=== PATIENT | female | born 1980 | race Caucasian/White ===

== ENCOUNTER 2017-10-11 18:02 | Inpatient (IN) | payer OTHER ==
[~2017-10-11] VITALS: Ht 154.9 cm; Wt 63.5 kg
[~2017-10-11 18:02] MED LIST: ACETAMINOPHEN-1 EAC1 PO; ALBUTEROL2.5 MG/31 INH; BACTRIM DS TAB1 EACH PO; BUPROPION; CIPROFLOXACIN500 M1 PO; DOXYCYCLINE 10100 M1 PO; IBUPROFEN 800800 M1 PO; IBUPROFEN 800800 MG PO; LORTAB 5 MG/5001 TA1 PO; MEDROLDOSEPACK PO; NOHOMEMEDICATIONS; NORCO 5-325 TA1 EACH PO; PENICILLIN V P500 MG PO; PHENERGAN 25 MG25 M1 PO; ROBITUSSIN-COU237 ML PO; TESSALON PERLE100 MG PO; ZPAK PO
[2017-10-11 18:11] VITALS: BP 132/85
[2017-10-11 18:36] LABS: HEMATOCRIT 42.2 % (37.0-47.0); MCH 30.6 pg (26.0-34.0); MCHC 33.3 g/dL (28.0-37.0); MPV 8.4 fl. (7.2-11.1); NUCLEATED RBCS 0 /100WBC; PLATELET COUNT* 382 thou/uL (150-400); RBC 4.59 mil/uL (4.20-5.00); RDW-CV 12.7 % (10.5-14.5); WBC 21.1 thou/uL (4.0-11.0)
[2017-10-11 18:46] LABS: CALCIUM 9.7 mg/dL (8.5-10.1); CREATININE 0.9 mg/dL (0.6-1.3)
[2017-10-11 18:51] LABS: ALBUMIN 3.6 g/dL (3.4-5.0); TOTAL BILIRUBIN 0.5 mg/dL (<0.1-1.0); TOTAL PROTEIN 8.1 g/dL (6.4-8.2)
[2017-10-11 18:52] LABS: ABSOLUTE BASOPHILS 0.2 thou/uL (0.0-0.2); ABSOLUTE LYMPHOCYTES 1.3 thou/uL (0.8-5.3); ABSOLUTE MONOCYTES 0.6 thou/uL (0.0-1.2); ATYPICAL LYMPHS 1 %; PLATELET ESTIMATE ADEQUATE
[2017-10-11 19:20] LABS: URINE BILIRUBIN NEGATIVE (Negative); URINE BLOOD NEGATIVE (Negative); URINE CLARITY CLEAR; URINE COLOR YELLOW; URINE GLUCOSE-RANDOM NEGATIVE (Negative); URINE KETONES NEGATIVE (Negative); URINE LEUKOCYTES-REFLEX NEGATIVE (Negative); URINE NITRITE-REFLEX NEGATIVE (Negative); URINE PROTEIN NEGATIVE (Negative)
[2017-10-11 19:41] LABS: AMP/METHAMP POSITIVE (Negative); BARBITURATES Negative (Negative); BENZODIAZEPINES Negative (Negative); COCAINE Negative (Negative); METHADONE Negative (Negative); OPIATES POSITIVE (Negative); PCP Negative (Negative); THC Negative (Negative)
--- NOTE | 2017-10-11 20:25 | NUR ---
PATIENT BACK FROM CT.
--- NOTE | 2017-10-11 23:15 | NUR ---
PATIENT ARRIVED FROM ER VIA W/CHAIR TO ROOM 315. PT HYSTERICALLY CRYING, YELLING INTO PHONE TO SIGNIFICANT OTHER THAT HE NEEDS TO COME BACK TO HOSPITAL AND STAY WITH HER. PT ALSO C/O PAIN IN BACK OF NECK. PT HAS CELLULITIS ON BACK OF NECK. AREA RED, WARM AND SWOLLEN; PICTURE PLACED ON CHART. PT RATES PAIN 10/10, FENTANYL 100MCG IV GIVEN. PT ABLE TO SLEEP AFTER THIS. PT ORIENTED TO ROOM/POLICIES AND VERBALIZES UNDERSTANDING. PT SHARED THAT B/FRIEND WAS IN HOSPITAL FOR MRSA IN HIS LEG THREE WEEKS AGO. B/FRIEND IS IN ROOM AT THIS TIME. PT PLACED IN ISOLATION UNTIL FURTHER TESING. FREQUENTLY USED ITEMS AND CALL LIGHT WITHIN REACH. SIDERAILS UPX2. WILL CONTINUE TO MONITOR.
[2017-10-11 23:17] VITALS: BP 171/102
--- NOTE | 2017-10-12 05:54 | NUR ---
PATIENT SLEPT WELL AFTER ASSESSMENT COMPLETED. PT GIVEN PAIN MEDICATION AFTER ASSESSMENT THEN AGAIN X1. PT ABLE TO RETURN TO SLEEP AFTERWARDS. PT PLACED IN ISOLATION FOR POSSIBLE MRSA. PT NPO SINCE MIDNIGHT. FREQUENTLY USED ITEMS AND CALL LIGHT WITHIN REACH. SIDERAILS UPX2. WILL CONTINUE TO MONITOR.
[2017-10-12 08:45] VITALS: BP 115/64
[2017-10-12 09:06] VITALS: BP 115/64
--- NOTE | 2017-10-12 10:42 | NUR ---
CM SPOKE TO THE PATIENT TO DISCUSS HOME SITUATION, DISCHARGE PLANNING, AND TO INFORM OF THE ROLE OF CM. PATIENT A&O, INDEPENDENT AND ACTIVE. PATIENT USES 0 DME. PATIENT HAS NO HX OF HH. PATIENT DOES NOT CURRENTLY HAVE INSURANCE. CM PROVIDED PATIENT A COMMUNITY RESOURCE LIST OF SAFETY NET CLINICS, AND A PRESCRIPTION ASSISTANCE CARD. CM WILL REMAIN AVAILABLE TO ASSIST AND FOLLOW NEEDED.
--- NOTE | 2017-10-12 14:03 | EKG ---
[place] [address] ELECTROCARDIOGRAM REPORT Name: GERALD FLAHERTY Room: [address] [place] .R.#: [id number] Admission: 10/11/17 Attend Phys: Perry Valencia MD Discharge: Date of : 84 Report #: [id number] THIS REPORT FOR: //name// [facility] ED Test Date: 2017-10-11 Test Time: 19:15:53 Pat Name: GERALD FLAHERTY Department: Room: [facility] Gender: F Podiatric Surgeon: BD : 1980 Requested By: Anthony Hernandez Order Number: [id number] MD: Refugio Caruso Measurements Intervals [place] Rate: 104 P: 42 NH: 130 QRS: 50 QRSD: 81 T: 56 QT: 336 QTc: 442 Interpretive Statements Sinus tachycardia No previous ECG available for comparison Electronically Signed On 10-12-2017 14:02:46 CDT by Refugio Caruso [email or web address] <ELECTRONICALLY SIGNED> By: Refugio Caruso MD, [facility] 10/12/17 1402 [id number] Refugio Caruso MD, FACC /EPI
[2017-10-12 16:00] VITALS: BP 105/60
[2017-10-12 16:08] LABS: GLYCOHEMOGLOBIN (HGB A1C) 5.3 % (4.8-5.6)
--- NOTE | 2017-10-12 17:27 | NUR ---
PATIENT HAS BEEN ALERT TODAY, COMPLAINS OF PAIN AT ALL TIMES, HAVE TRIED TO LET PATIENT REST TODAY. TOLERATING DIET WELL, PATIENT IS VERY TEARFUL ABOUT EVERYTHING. VITAL SIGNS HAVE BEEN STABLE ON ROOM AIR. UP AD RENEE IN ROOM. BOYFRIEND HAS BEEN AT BEDSIDE TODAY. CALL LIGHT IS IN REACH, WILL CONTINUE TO MONITOR.
[2017-10-12 20:10] VITALS: BP 106/67
[2017-10-13 03:37] VITALS: BP 106/67
--- NOTE | 2017-10-13 04:19 | NUR ---
PT A&O X4 CALM COOPERITVE. PT REPORTS PAIN, PARTIAL RELIEF NOTED WITH MEDICATION. ADLIB. RA. PT SCHEDULED FOR I&D IN AM, PRESURGERY CHECK STARTED. VITALS WNL. SEE MAR. SEE CHARTING. HOURLY ROUNDING FOR SAFETY.
[2017-10-13 05:46] LABS: HEMATOCRIT 39.1 % (37.0-47.0); HEMOGLOBIN 12.7 gm/dL (12.0-15.0); MCH 30.4 pg (26.0-34.0); MCHC 32.6 g/dL (28.0-37.0); MCV 93.4 fL (80.0-100.0); MPV 8.6 fl. (7.2-11.1); RBC 4.19 mil/uL (4.20-5.00); RDW-CV 12.6 % (10.5-14.5); WBC 19.6 thou/uL (4.0-11.0)
[2017-10-13 06:01] LABS: CALCIUM 9.2 mg/dL (8.5-10.1); CREATININE 0.7 mg/dL (0.6-1.3); MAGNESIUM 1.7 mg/dL (1.8-2.4); POTASSIUM 3.7 mmol/L (3.5-5.1); TOTAL BILIRUBIN 0.2 mg/dL (<0.1-1.0); TOTAL PROTEIN 6.5 g/dL (6.4-8.2)
[2017-10-13 07:30] VITALS: BP 111/66
[2017-10-13 08:07] VITALS: BP 129/71
[2017-10-13 16:00] VITALS: BP 113/64
--- NOTE | 2017-10-13 17:01 | NUR ---
DRESSING BECAME SATURATED AND WOUND WAS REDRESSED BY THIS NURSE. WOUND RED WITH LARGE AMOUNT SEROSAGUINOUS DRAINAGE.
--- NOTE | 2017-10-13 18:52 | NUR ---
PT REPORTS PAIN BETTER AFTER I&D. SEROSANGUINOUS DRAINAGE FROM WOUND ON BACK OF NECK. NO OTHER C/O. PT ABLE TO MAKE NEEDS KNOWN, CALL LIGHT IN REACH
[2017-10-14 00:22] VITALS: BP 122/56
--- NOTE | 2017-10-14 04:29 | NUR ---
PATIENT SLEPT WELL DURING THIS SHIFT. PT WITH DRESSING ON BACK OF NECK FROM I/D PERFORMED YESTERDAY. DSG C/D/I. PT'S SIGNIFICANT OTHER IN ROOM. PT UP TO BATHROOM WITH STEADY GAIT. PT WITH ANTIBIOTICS INFUSING IN LT FOREARM PER DR ORDER. PT GIVEN SCHEDULED ULTRAM FOR PAIN. PT DENIES NEEDS AT THIS TIME. FREQUENTLY USED ITEMS AND CALL LIGHT WITHIN REACH. SIDERAILS UPX2. WILL CONTINUE TO MONITOR.
[2017-10-14 07:08] LABS: HEPATITIS B SURFACE AG Negative (Negative)
[2017-10-14 08:40] VITALS: BP 102/68
[2017-10-14 09:23] LABS: HEMATOCRIT 33.5 % (37.0-47.0); HEMOGLOBIN 11.1 gm/dL (12.0-15.0); MCH 30.2 pg (26.0-34.0); MCHC 33.2 g/dL (28.0-37.0); MCV 90.7 fL (80.0-100.0); MPV 8.6 fl. (7.2-11.1); RBC 3.69 mil/uL (4.20-5.00); RDW-CV 12.9 % (10.5-14.5); WBC 17.3 thou/uL (4.0-11.0)
[2017-10-14 09:34] LABS: ALBUMIN 2.6 g/dL (3.4-5.0); CALCIUM 8.6 mg/dL (8.5-10.1); CREATININE 0.7 mg/dL (0.6-1.3); MAGNESIUM 1.7 mg/dL (1.8-2.4); POTASSIUM 3.6 mmol/L (3.5-5.1); TOTAL BILIRUBIN 0.1 mg/dL (<0.1-1.0); TOTAL PROTEIN 6.4 g/dL (6.4-8.2)
[2017-10-14 16:58] VITALS: BP 123/72
--- NOTE | 2017-10-14 17:31 | NUR ---
PATIENT A/O X 4 THIS SHIFT. MEDICATED FOR NECK/HEAD PAIN WITH PRN HYDROCODONE AND SCHEDULED TRAMADOL WITH RELIEF. PACKING CHANGED BY SURGERY RESIDENT TO NECK ABSCESS. DRESSING IN PLACE. NEW IV STARTED THIS SHIFT. IV ANTIBIOTICS INFUSED. UP AD RENEE IN ROOM. CULTURES PENDING. SIGNIFICANT AT BEDSIDE. REMAINS IN CONTACT ISOLATION. HOURLY ROUNDING COMPLETED. CALL LIGHT WITHIN REACH. WILL CONTINUE WITH PLAN OF CARE.
[2017-10-15 00:38] VITALS: BP 130/81
[2017-10-15 04:35] LABS: HEMATOCRIT 33.7 % (37.0-47.0); HEMOGLOBIN 11.4 gm/dL (12.0-15.0); MCH 31.1 pg (26.0-34.0); MCHC 33.8 g/dL (28.0-37.0); MCV 92.1 fL (80.0-100.0); MPV 8.2 fl. (7.2-11.1); RBC 3.65 mil/uL (4.20-5.00); RDW-CV 12.5 % (10.5-14.5); WBC 10.3 thou/uL (4.0-11.0)
[2017-10-15 05:08] LABS: ALBUMIN 2.6 g/dL (3.4-5.0); CALCIUM 8.4 mg/dL (8.5-10.1); CREATININE 0.8 mg/dL (0.6-1.3); POTASSIUM 4.1 mmol/L (3.5-5.1); TOTAL BILIRUBIN 0.1 mg/dL (<0.1-1.0); TOTAL PROTEIN 5.9 g/dL (6.4-8.2)
--- NOTE | 2017-10-15 06:39 | NUR ---
ASSESSMENT COMPLETE. PT SLEPT THROUGH THE NIGHT WITHOUT ANY CONCERNS. PT IS ON ROOM AIR. DENIES SOA. DENIES N/V. PT GIVEN IV ABX SCHEDULED. DRESSING C/D/I. PT IN ISOLATION. PT HAS IV IN RIGHT FOREARM SALINE LOCKED. PT IS UP AD RENEE WITH STEADY GAIT. SEE ASSESSMENT AND VITALS FOR OTHER DETAILS. CALL LIGHT WITHIN REACH, WILL CONTINUE PLAN OF CARE
[2017-10-15 08:40] VITALS: BP 126/87
--- NOTE | 2017-10-15 16:00 | NUR ---
SPOKE WITH (SURGERY) REGARDING ANTIBIOTIC PT.WILL GO HOME ON. SHE IS PT.PAY AND IF DRUG WOULD BE [facility] CM COULD POSSIBLY OBTAIN AT NO COST FOR HER THROUGH THE [employer] ASSISTANCE PROGRAM,DEPENDING ON INCOME AND NUMBER IN HOUSEHOLD. HE SAID THERE ARE SEVERAL OTHER POSSIBLITIES OF PO ANTIBIOTICS THAT COULD BE ORDERED. EXPLAINED [employer] ASSIST PROGRAM NOT AVAILABLE ON WEEKENDS. HE WILL DEFER ANTIBIOTIC TO MEDICINE.
[2017-10-15 16:05] VITALS: BP 108/71
--- NOTE | 2017-10-15 19:54 | NUR ---
PATIENT HAS BEEN A/O X 4 THIS SHIFT. CONTINUES ON IV ANTIBIOTICS. DRESSING INTACT TO BACK OF NECK. HAS SLEPT IN INTERVALS THIS SHIFT. CONTINUES ON SCHEDULED TRAMADOL FOR PAIN RELIEF. CULTURES SHOWING MRSA. UP AD RENEE IN ROOM. VITALS STABLE. HOPING TO BE DISCHARGED SOON. CONTINUES ON CONTACT PRECAUTIONS. HOURLY ROUNDING COMPLETED. CALL LIGHT WITHIN REACH. WILL CONTINUE WITH PLAN OF CARE.
[2017-10-16 00:29] VITALS: BP 117/72
[2017-10-16 04:27] LABS: HEMATOCRIT 33.9 % (37.0-47.0); HEMOGLOBIN 11.5 gm/dL (12.0-15.0); MCH 31.3 pg (26.0-34.0); MCV 92.3 fL (80.0-100.0); RBC 3.67 mil/uL (4.20-5.00); WBC 9.3 thou/uL (4.0-11.0)
[2017-10-16 05:04] LABS: ALBUMIN 2.4 g/dL (3.4-5.0); ALKALINE PHOSPHATASE 96 U/L (46-116); ANION GAP 9 mmol/L (7-16); BUN 11 mg/dL (7-18); CHLORIDE 106 mmol/L (98-107); CO2 27 mmol/L (21-32); CREATININE 0.7 mg/dL (0.6-1.3); GLUCOSE 111 mg/dL (70-99); MAGNESIUM 1.5 mg/dL (1.8-2.4); POTASSIUM 3.6 mmol/L (3.5-5.1); SGOT 19 U/L (15-37); SGPT 46 U/L (30-65); SODIUM 142 mmol/L (136-145); TOTAL PROTEIN 5.4 g/dL (6.4-8.2)
[2017-10-16 05:06] LABS: TOTAL BILIRUBIN < 0.1 mg/dL (<0.1-1.0)
--- NOTE | 2017-10-16 05:57 | NUR ---
ASSESSMENT COMPLETE. PT SLEPT THROUGH THE NIGHT WITHOUT ANY CONCERNS. PRN PAIN MEDICATION GIVEN WITH DRESSING CHANGE. PT TOLERATED DRESSING CHANGE WELL. PT SHOWERED TONIGHT. PT IS UP AD RENEE WITH STEADY GAIT. SEE ASSESSMENT AND VITALS FOR OTHER DETAILS. CALL LIGHT WITHIN REACH, WILL CONTINUE PLAN OF CARE
[2017-10-16 07:54] VITALS: BP 103/59
[2017-10-16] MEDS ORDERED: BACTRIM DS TAB1 EACH PO (07:57)
[2017-10-16] MEDS ORDERED: TRAMADOL 50 MG50 MG PO (07:57)
[2017-10-16] MEDS ORDERED: HYDROCODONE-AP1 EAC6 PO (07:57)
--- NOTE | 2017-10-16 10:27 | NUR ---
Pt to dc home with significant other care for wound care. Per nursing, pt and pt significant other confident and capable of proper wound care.
[2017-10-16 10:29] VITALS: BP 103/59
[2017-10-16 10:57] VITALS: BP 103/59
[2017-10-16 11:31] VITALS: BP 103/59
--- NOTE | 2017-10-16 11:39 | NUR ---
PATIENT IS BEING DISCHARGED TO [facility]. BOYFRIEND IS GOING TO HELP WITH DRESSING CHANGES AT HOME, EDUCATION DONE AND HE UNDERSTOOD HOW TO DO THE DRESSING CHANGE AND FEELS COMFORTABLE DOING IT AT HOME. PATIENT IS IN STABLE CONDITION. SOME PAIN THAT IS CONTROLLED WITH ORAL PAIN MEDICATIONS. PRESCRIPTIONS GIVEN, DISCHARGE INSTRUCTIONS GIVEN AND GONE OVER WITH ALL QUESTIONS ANSWERED FOR PATIENT AND FRIEND.
[2017-10-16 12:01] VITALS: BP 103/59
--- NOTE | 2017-10-16 12:01 | NUR ---
PATIENT LEFT WITH BOYFRIEND TO HOME, BELONGINGS GATHERED UP AND PATIENT TOOK HOME WITH THEM.
--- NOTE | 2017-11-03 09:48 | OP ---
[address] [address] OPERATIVE REPORT Name: GERALD FLAHERTY Room: [address]#: [id number] Admission: 10/11/17 Attend Phys: Perry Valencia MD Discharge: 10/16/17 Date of : 84 Report #: [id number] THIS REPORT FOR: //name// CC: [facility] physician/PCP Perry Valencia DICTATED BY: Troy Herrera DO DICTATED BY: This is Troy Herrera DO, PGY-1 dictating operative report on behalf of Dr. Lei Garcia. PREOPERATIVE DIAGNOSIS: Posterior neck abscess. POSTOPERATIVE DIAGNOSIS: Posterior neck abscess. SURGEON: Lei Garcia DO. CO-SURGEON: Troy Herrera DO. CHAIN MAKER HAND: Rahul Gallardo MS3. OPERATION PERFORMED: Incision and drainage of neck abscess. ANESTHESIA TYPE: General. ESTIMATED BLOOD LOSS: 10 mL. SPECIMENS: Anaerobic and aerobic cultures. COMPLICATIONS: None. COMMENTS: The patient tolerated the procedure well, to PACU in a stable condition. HISTORY OF PRESENT ILLNESS: The patient is a pleasant 37-year-old female who was admitted for a posterior neck abscess. She stated it started about 4 days ago, became progressively worse. Admitted to fever and chills. Her boyfriend recently had an abscess of the lower extremity, with cultures returning positive for MRSA. Denies any history of abscess in the past. Consent was obtained for I and D of the posterior neck abscess. DESCRIPTION OF PROCEDURE: After consent was obtained, the patient was taken to the operating room and placed in the right lateral decubitus position. The patient was prepped and draped in the normal sterile fashion after anesthesia was administered successfully. Timeout was performed, confirming patient and procedure. A 15 blade scalpel was then used to make a horizontal incision right over the abscess. Cultures were then obtained and using my finger, [place] [address] OPERATIVE REPORT Name: GERALD FLAHERTY Room: [address]#: [id number] Admission: 10/11/17 Attend Phys: Perry Valencia MD Discharge: 10/16/17 Date of : 84 Report #: [id number] dissection to break up any loculations within the abscess cavity. Significant amount of purulent fluid was expelled from the abscess cavity. The cavity was then irrigated copiously with hydrogen peroxide, followed by normal saline. The abscess cavity was packed with half-inch gauze and dressings were placed over the top. The patient was then awoken from anesthesia, without any complication and transferred to PACU in a stable condition. All instrument, needle and sponge counts were correct at the end of the case. The patient tolerated the procedure well. <ELECTRONICALLY SIGNED> By: Lei Garcia DO 11/03/17 0948 [id number] Garcia DO /[email or web address]
== END 2017-10-16 11:30 | disposition home or self-care (01) | DRG 603 ==
LOC: M.ERS 18:02 → M.TBA-ER 21:36 → M.3W 21:36
PROVIDERS: Family Medicine; Internal Medicine; Nurse Practitioner Psychiatric/Mental Health; Surgery; ADMIT Internal Medicine
PROC: 0H94XZZ Drainage of Neck Skin, External Approach (ICD-10-PCS; principal; 2017-10-13)
DX: L03.221 Cellulitis of neck (principal); L02.11 Cutaneous abscess of neck; F32.9 Major depressive disorder, single episode, unspecified; D72.829 Elevated white blood cell count, unspecified; Z79.899 Other long term (current) drug therapy; F15.10 Other stimulant abuse, uncomplicated; Z79.1 Long term (current) use of non-steroidal anti-inflammatories (NSAID)